=== PATIENT | female | born 1970 | race Caucasian/White ===

== ENCOUNTER 2017-05-20 14:12 | Emergency (ER) | payer MEDICAID ==
[~2017-05-20] VITALS: Ht 162.6 cm; Wt 59.0 kg
[2017-05-20 14:34] VITALS: BP 130/63
--- NOTE | 2017-05-20 14:43 | PHYS DOC ---
Past Medical History Past Medical History: Hypothyroid Past Surgical History: Other Additional Past Surgical Histo: hernia Alcohol Use: None Drug Use: None Adult General Chief Complaint Chief Complaint: MEDICATION REFILL [facility] HPI Patient is a 46 year old female presents to the emergency department stating that she has 11 pills left of her liver thyroxine 0.075 mg. Patient states that she contacted her physician in [place] and they refuse to provide a refill at this time. They state that she needed to have some blood work completed. Patient is here on vacation and does not have a sensibility to follow-up with her primary care physician as insurance would not pay for this. Review of Systems Review of Systems Constitutional: Denies fever or chills [] Eyes: Denies change in visual acuity, redness, or eye pain [] HENT: Denies nasal congestion or sore throat [] Respiratory: Denies cough or shortness of breath [] Cardiovascular: No additional information not addressed in HPI [] GI: Denies abdominal pain, nausea, vomiting, bloody stools or diarrhea [] : Denies dysuria or hematuria [] Musculoskeletal: Denies back pain or joint pain [] Integument: Denies rash or skin lesions [] Neurologic: Denies headache, focal weakness or sensory changes [] Endocrine: Denies polyuria or polydipsia [] Medication refill Allergies Allergies Allergies Coded Allergies Type Severity Reaction Last Updated Verified tetracycline Allergy Intermediate 05/20/17 Yes Physical Exam Physical Exam Constitutional: Well developed, well nourished, no acute distress, non-toxic appearance. [] HENT: Normocephalic, atraumatic, bilateral external ears normal, oropharynx moist, no oral exudates, nose normal. Bilateral tympanic membranes appear to be normal. Throat with redness noted no exudate no erythematous noted. No anterior cervical adenopathy noted. Eyes: PERRLA, EOMI, conjunctiva normal, no discharge. [] Neck: Normal range of motion, no tenderness, supple, no stridor. [] Cardiovascular:Heart rate regular rhythm, no murmur [] Lungs & Thorax: Bilateral breath sounds clear to auscultation [] Skin: Warm, dry, no erythema, no rash. [] Back: No tenderness Extremities: No tenderness, no cyanosis, no clubbing, ROM intact, no edema. [] Neurologic: Alert and oriented X 3, normal motor function, normal sensory function, no focal deficits noted. [] Psychologic: Affect normal, judgement normal, mood normal. [] Current Patient Data Vital Signs Vital Signs Date Time Temp Pulse Resp B/P (MAP) Pulse Ox O2 Delivery O2 Flow Rate FiO2 05/20/17 14:34 97.9 81 20 98 Room Air 97.9 Lab Values Laboratory Tests Test 05/20/17 14:50 Thyroid Stimulating Hormone (TSH) 0.940 uIU/mL (0.358-3.74) EKG EKG [] Radiology/Procedures Radiology/Procedures [] Course & Med Decision Making Course & Med Decision Making Pertinent Labs and Imaging studies reviewed. (See chart for details) Patient's TSH was rechecked here in the emergency department is 0.94. We'll refill the patient's liver thyroxine 75 g daily for the next 30 days. I'll provide her with 2 refills that she is here for 6 months due to her father having an injury and following. Patient was instructed to contact her primary care physician and provided them with the lab results that we have provided. Patient agrees with discharge instructions treatment regimens and follow-up recommendations. Signs and symptoms to return back to emergency department has been provided. All questions have been answered for the patient has been answered at her bedside.. [] Dragon Disclaimer Dragon Disclaimer This electronic medical record was generated, in whole or in part, using a voice recognition dictation system. Departure Departure Impression: Primary Impression: Medication refill Disposition: HOME, SELF-CARE Condition: STABLE Patient Instructions: Medication Refill, Emergency Department Additional Instructions: Your TSH was 0.94. Your levothyroxine will be refilled with refills available. Please contact her primary care physician in [place] and provided them with a copy of your lab for here the emergency department. Follow-up as needed. Return to the emergency department for signs and symptoms of become worse Scripts Levothyroxine Sodium (LEVOTHYROXINE SODIUM) 75 Mcg Tablet 1 TAB PO DAILY, #30 TAB 4 Refills Prov: BARTOLO PETERSEN APRN 05/20/17 BARTOLO PETERSEN APRN May 20, 2017 14:43
[2017-05-20] MEDS ORDERED: LEVO75TA5 PO (15:34)
== END 2017-05-20 15:35 | disposition home or self-care (01) ==
LOC: ER 14:12
DX: Z76.0 Encounter for issue of repeat prescription (principal); E03.9 Hypothyroidism, unspecified; Z88.1 Allergy status to other antibiotic agents
CPT/HCPCS: 36415; 84443; 99283

== ENCOUNTER 2017-08-24 08:22 | Emergency (ER) | payer MEDICAID ==
[~2017-08-24] VITALS: Ht 162.6 cm; Wt 54.4 kg
[~2017-08-24 08:22] MED LIST: LEVO75TA5 PO
[2017-08-24 08:33] VITALS: BP 114/75
[2017-08-24] MEDS ORDERED: FLUORESCEIN OPHTH TEST STRIP. ONE (08:34)
[2017-08-24] MEDS ORDERED: TETRACAINE 0.5% OPHTH SOLUTION 4ML BOTTLE. ONE (08:34)
[2017-08-24] MEDS ORDERED: EYE-STREAM OPHTH SOLUTION 120 ML BOTTLE. ONE (08:34)
[2017-08-24] MEDS ORDERED: CYCLOPENTOLATE 1% OPTH SOLUTION 2ML BOTTLE. OS ONE (08:45)
[2017-08-24] MEDS ORDERED: ERYTHROMYCIN 0.5% OPHTH OINTMENT 1GM TUBE. OS ONE (08:45)
[2017-08-24] MEDS ORDERED: CYCL2DRO2 OP (08:54)
[2017-08-24] MEDS ORDERED: ERYT1OIN6 OP (08:54)
[2017-08-24] MEDS ORDERED: ACET325T9 PO (08:54)
--- NOTE | 2017-08-24 08:54 | PHYS DOC ---
Past Medical History Past Medical History: Hypothyroid Past Surgical History: Other Additional Past Surgical Histo: hernia Alcohol Use: None Drug Use: None Adult General Chief Complaint Chief Complaint: EYE PROBLEMS [facility] HPI Patient is a pleasant 47-year-old otherwise healthy female who was stacking a court-appointed last night and sustained an injury to the left eye which she felt like a piece of bark that struck her in the eye. She denies any eye pain or pain with extraocular movement. She says that she has a foreign body sensation in the lower portion of her eye and she feels that she may have retained foreign body under the eyelid. Patient attempted to wash out the eye last night with minimal success the could take a look as well please or maybe a foreign body still within the eyelid. This patient does not wear contact lenses she does were corrective lenses and she has a visual acuity of 20 /50 in each eye. Patient denies any facial trauma, facial pain, swallowing problems, URI symptoms, rash patient's eye is mildly swollen secondary to rubbing Review of Systems Review of Systems Constitutional: Denies fever or chills [] Eyes: Patient does have redness and eye pain secondary to foreign body sensation as well as some clear tearing no loss of visual acuity HENT: Denies nasal congestion or sore throat [] Respiratory: Denies cough or shortness of breath [] Cardiovascular: No additional information not addressed in HPI [] GI: Denies abdominal pain, nausea, vomiting, bloody stools or diarrhea [] Musculoskeletal: Denies back pain or joint pain [] Integument: Denies rash or skin lesions [] Neurologic: Denies headache,\\ All other systems were reviewed and found to be within normal limits, except as documented in this note. Current Medications Current Medications Current Medications Medications (Trade) Dose Ordered Sig/Jaz Start Time Stop Time Status Last Admin Dose Admin Balanced Salt Solution (Eye-Stream) 120 ml STK-MED ONCE 08/24/17 08:34 08/24/17 08:35 DC Fluorescein Sodium (Ful-Iza) 1 strip STK-MED ONCE 08/24/17 08:34 08/24/17 08:35 DC Tetracaine HCl (Tetracaine) 40 drop STK-MED ONCE 08/24/17 08:34 08/24/17 08:35 DC Allergies Allergies Allergies Coded Allergies Type Severity Reaction Last Updated Verified tetracycline Allergy Intermediate 05/20/17 Yes Physical Exam Physical Exam Vital signs on the chart within normal limits Constitutional: Well developed, well nourished, no acute distress, non-toxic appearance. [] HENT: Normocephalic, atraumatic, bilateral external ears normal, oropharynx moist, no oral exudates, nose normal. [] Eyes: PERRLA, EOMI, conjunctiva are injected there is clear tearing no obvious signs of foreign body. Patient had tetracaine and fluroseine stain placed in the eye which did resolve her symptoms. The eyelid was inverted. No foreign body was noted no Aaron sign, no rink sign, no dendrites there was a corneal abrasion at the 5 o'clock position 3 mm below the iris. There is no rust ring, no evidence of globe rupture, globe was soft Neck: Normal range of motion, no tenderness, supple, no stridor. [] Cardiovascular:Heart rate regular rhythm, no murmur [] Lungs & Thorax: Bilateral breath sounds clear to auscultation [] Skin: Warm, dry, no erythema, no rash. [] Neurologic: Alert and oriented X 3, normal motor function, normal sensory function, no focal deficits noted. [] Psychologic: Affect normal, judgement normal, mood normal. [] Current Patient Data Vital Signs Vital Signs Date Time Temp Pulse Resp B/P (MAP) Pulse Ox O2 Delivery O2 Flow Rate FiO2 08/24/17 08:33 97.7 81 20 100 Room Air 97.7 EKG EKG [] Radiology/Procedures Radiology/Procedures [] Course & Med Decision Making Course & Med Decision Making Pertinent Labs and Imaging studies reviewed. (See chart for details) []A she sustained a corneal abrasion and foreign body sensation in the eye. During a curry lamp exam patient noted to have a corneal abrasion the 5 o'clock position of the conjunctiva. No foreign body was noted on the inversion of the eyelids to full range of motion. No Aaron sign no evidence of globe rupture. Patient's tetanus shot is up-to-date she was given Cyclogyl, with ophthalmic ointment and PCP follow-up discharge: I've spoken with the patient and/or caregivers. I've explained the patient's condition, diagnosis and treatment plan based on information available to me at this time. I've answered the patient's and/or caregivers questions and addressed any concerns. The patient and/or caregivers have a good understanding the patient's diagnosis, condition and treatment plan as can be expected at this point. Vital signs have been stabilized. The patient's condition is stable for discharge from the emergency department. The patient will pursue further outpatient evaluation with her primary care provider or other designated consulting physician as outlined in the discharge instructions. Patient and/or caregivers are agreeable to this plan of care and follow-up instructions have been explained in detail. The patient and/or caregivers have received these instructions in written format and expressed understanding of these discharge instructions. The patient and her caregivers are aware that if any significant change in condition or worsening of symptoms should prompt him to immediately return to this of the closest emergency department. If an emergent department is not readily available I would encourage him to call 911. Dragon Disclaimer Dragon Disclaimer This electronic medical record was generated, in whole or in part, using a voice recognition dictation system. Departure Departure Impression: Primary Impression: Corneal abrasion Disposition: HOME, SELF-CARE Condition: IMPROVED Referrals: UNKNOWN PCP NAME (PCP) Patient Instructions: Eye - Corneal Abrasion Additional Instructions: discharge: I've spoken with the patient and/or caregivers. I've explained the patient's condition, diagnosis and treatment plan based on information available to me at this time. I've answered the patient's and/or caregivers questions and addressed any concerns. The patient and/or caregivers have a good understanding the patient's diagnosis, condition and treatment plan as can be expected at this point. Vital signs have been stabilized. The patient's condition is stable for discharge from the emergency department. The patient will pursue further outpatient evaluation with her primary care provider or other designated consulting physician as outlined in the discharge instructions. Patient and/or caregivers are agreeable to this plan of care and follow-up instructions have been explained in detail. The patient and/or caregivers have received these instructions in written format and expressed understanding of these discharge instructions. The patient and her caregivers are aware that if any significant change in condition or worsening of symptoms should prompt him to immediately return to this of the closest emergency department. If an emergent department is not readily available I would encourage him to call 911. Scripts Acetaminophen (TYLENOL) 325 Mg Tablet 1-2 TAB PO QID, #60 TAB 0 Refills Prov: LUIS CLAUDIO MD 08/24/17 Erythromycin Base (Erythromycin) 1 Gm Oint...g. 1 GM OP TID for 5 Days, MISC Prov: LUIS CLAUDIO MD 08/24/17 Cyclopentolate Hcl (CYCLOGYL) 2 Ml Drops 2 ML OP TID for 3 Days, DROP Prov: LUIS CLAUDIO MD 08/24/17 LUIS CLAUDIO MD Aug 24, 2017 08:54
== END 2017-08-24 09:05 | disposition home or self-care (01) ==
LOC: ER 08:22
DX: S05.02XA Injury of conjunctiva and corneal abrasion without foreign body, left eye, initial encounter (principal); E03.9 Hypothyroidism, unspecified; Z88.1 Allergy status to other antibiotic agents; W22.8XXA Striking against or struck by other objects, initial encounter; Y93.89 Activity, other specified; Y92.89 Other specified places as the place of occurrence of the external cause; Y99.8 Other external cause status
CPT/HCPCS: 99283